=== PATIENT | female | born 1995 | race Caucasian/White ===

== ENCOUNTER 2017-09-08 23:06 | Emergency (ER) | payer OTHER ==
[~2017-09-08 23:06] MED LIST: CEPHALEXIN500 MG PO; CIPRO500 M1 PO; IBUPROFEN800 M1 PO; REGLAN10 M1 PO
--- NOTE | 2017-09-09 00:16 | ED HAND/WRIST INJURY COMPLAINT ---
History of Present Illness General Chief Complaint: Laceration Procedure Stated Complaint: L LAC TO THUMB Source: patient Exam Limitations: no limitations Vital Signs & Intake/Output Vital Signs & Intake/Output Vital Signs Date Time Temp Pulse Resp B/P B/P Pulse O2 O2 Flow FiO2 Mean Ox Delivery Rate 09/08 2309 97.0 108 18 110/70 97 Room Air Allergies Coded Allergies: NO KNOWN ALLERGIES (03/13/16) Reconcile Medications No Known Home Medications Triage Note: PT TO TRIAGE WITH LAC TO L THUMB CUT WITH KNIFE AT APPROX NOON WHEN CUTTING CUCUMBERS. BLEEDING CONTROLLED UNDER BAND AID. PT UNSURE OF LAST TETANUS. Triage Nurses Notes Reviewed? yes Occurred: just prior to arrival Duration: hour(s):, constant, continues in ED Timing: recent history Injury Environment: home Severity: moderate, severe Pain/Injury Location: Left: 1st finger. No Modifying Factors: none : No Patient currently breastfeeds: No HPI: 22-year-old female comes in the emergency room for further evaluation of laceration to left thumb. Patient cut it on a knife accidentally. No associated bleeding. Comes in for further evaluation. Denies any numbness or tingling. Unsure of last tetanus shot. She currently is in college. (Pranav Delgado) Past History Travel History Traveled to [place] past 21 day No Medical History Any Pertinent Medical History? 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 No (Pranav Delgado) Review of Systems Review of Systems Constitutional: Reports: no symptoms. EENTM: Reports: no symptoms. Respiratory: Reports: no symptoms. Cardiovascular: Reports: no symptoms. GI: Reports: no symptoms. Genitourinary: Reports: no symptoms. Musculoskeletal: Reports: see HPI. Skin: Reports: see HPI. Neurological/Psychological: Reports: no symptoms. Hematologic/Endocrine: Reports: no symptoms. Immunologic/Allergic: Reports: no symptoms. All Other Systems: Reviewed and Negative (Pranav Delgado) Physical Exam Physical Exam General Appearance: well developed/nourished, mild distress Head: atraumatic Eyes: Bilateral: normal appearance. Ears, Nose, Throat: normal ENT inspection, hearing grossly normal Neck: normal inspection Cardiovascular/Respiratory: no respiratory distress Back: normal inspection Hand Left: 1st finger (1 cm laceration, superficial) Hand Right: normal inspection Neurologic/Tendon: normal sensation, normal motor functions, normal tendon functions, responds to pain, no evidence tendon injury Skin: intact, normal color, warm/dry Lymphatic: no anterior cervical pratik (Pranav Delgado) Progress Differential Diagnosis: fracture, gout, paronychia, sprain Plan of Care: No stitches required. Patient clinically looks well. No apparent distress. (Pranav Delgado) Departure Departure Disposition: HOME OR SELF CARE Condition: Stable Clinical Impression Primary Impression: Laceration of left thumb Referrals: Patient Has No Primary Care Dr (PCP/Family) Additional Instructions: Watch for signs of infection such as redness or discharge. Chills. Return if any other concerns worsening symptoms. Please go over all results of today's visit with your primary care doctor. Contact your primary care doctor to let them know you were here in the emergency room. There may be nonspecific findings which may not be related to your visit today here in the emergency room but may require further evaluation and chronic monitoring by your primary care doctor. If you had a laceration today the chance of foreign body always remains. You should follow-up with your primary care doctor for recheck in 3-5 days for a wound check. If you had an x-ray done there is a chance that a fracture could have been missed on initial read and you should follow-up with your primary care doctor for repeat x-rays if symptoms persist. If your blood pressure was elevated here in the emergency room please have rechecked by her primary care doctor within the next 48 hours by your primary care doctor. If you were prescribed a narcotic here in the emergency room or any type of controlled substances you're not allowed to drive while taking this medication or operate any type of heavy machinery. Narcotics can make you feel lightheaded dizziness nausea and can cause constipation. You may need to roller picker a stool softener. Thank you for choosing [facility] emergency room. Please return to the emergency room immediately if you have any other concerns worsening of symptoms. Departure Forms: Customer Survey General Discharge Information Prescriptions: Current Visit Scripts No Known Home Medications (Pranav Delgado) PA/SPINNING SUPERVISOR Co-Sign Statement Statement: ED Attending supervision documentation- I saw and evaluated the patient. I have also reviewed all the pertinent lab results and diagnostic results. I agree with the findings and the plan of care as documented in the PA's/SPINNING SUPERVISOR's documentation. x I have reviewed the ED Record and agree with the PA's/SPINNING SUPERVISOR's documentation. [] Additions or exceptions (if any) to the PAs/SPINNING SUPERVISOR's note and plan are summarized below: [] (Silvina REED,Dong) Procedures Laceration/Wound Repair Progress: 1 cm laceration to left thumb lateral to the nail, superficial, no active bleeding, irrigated with distilled water and hydrated and peroxide, Dermabond placed, a dry sterile dressing, sterile technique, Performed by PA student with my supervision (Pranav Delgado)
[2017-09-09 00:50] VITALS: BP 102/82
== END 2017-09-09 00:57 ==
LOC: ERH 23:06
DX: S61.012A Laceration without foreign body of left thumb without damage to nail, initial encounter (principal); W26.0XXA Contact with knife, initial encounter; Y93.9 Activity, unspecified; Y92.9 Unspecified place or not applicable